=== PATIENT | male | born 1940 | race Caucasian/White ===

== ENCOUNTER 2017-11-21 15:30 | Observation (INO) | payer MEDICARE, OTHER ==
[~2017-11-21 15:30] MED LIST: ISOVUE-370 76%-LOCM 1 ML ONE
--- NOTE | 2017-11-21 17:27 | RAD ---
PORTABLE CHEST ONE VIEW: 11/21/17 at 4:23 p.m. HISTORY: Syncope. FINDINGS: Comparison is made with exam of 07/17/12. The heart is enlarged. Left sided AICD remains in place. The aorta is tortuous. No lobar consolidatio n, pneumothoraces, or pleural effusion was seen. There is no evidence of ava pulmonary edema. Posto p changes in both clavicles and shoulder regions are redemonstrated. IMPRESSION: No acute process. POS: [facility]
--- NOTE | 2017-11-21 17:41 | RAD ---
AP PELVIS: 11/21/17 HISTORY: Fall. Back pain. FINDINGS/IMPRESSION: Degenerative changes are seen most prominent in the lower lumbar spine. No acute fracture or dislocat ions are identified. POS: [facility]
--- NOTE | 2017-11-21 17:43 | RAD ---
RIGHT KNEE FOUR VIEWS 11/21/17 HISTORY: Fall, right knee pain. FINDINGS: Degenerative changes are present. No acute fracture or dislocation is identified. Soft tissue calcifi cations are again seen as on 07/07/17. POS: [facility]
--- NOTE | 2017-11-21 17:44 | RAD ---
LEFT KNEE FOUR VIEWS: 11/21/17 HISTORY: Fall. Left knee pain. FINDINGS/IMPRESSION: Degenerative changes are present. No acute fracture or dislocation identified. POS: [facility]
[2017-11-21 17:48] LABS: #Eosinphils 0.1 thou/uL (0.0-0.7); #Lymphocytes 1.2 thou/uL (1.20-3.40); #Monocytes 0.4 thou/uL (0.11-0.59); #Neutrophils 3.8 thou/uL (1.40-6.50); %Eosinophils 2.1 % (0.0-10.0); %Lymphocytes 21.3 % (21.0-51.0); %Neutrophils 68.6 % (42.0-75.0); Hemoglobin 13.4 g/dL (14.0-18.0); Mean Corpuscular HGB CONC 33.1 g/dL (32.0-36.0); Mean Corpuscular Hemoglobin 32.3 pg (27.0-31.0); Mean Corpuscular Volume 97.7 fl (80.0-94.0); Mean Platelet Volume 7.7 fL (7.4-10.4); Platelet Count 130 thou/uL (130-400); RBC Distribution Width 13.5 % (11.5-14.5); Red Blood Cell (RBC) Count 4.14 mill/uL (4.70-6.10); White Blood Cell (WBC) Count 5.6 thou/uL (4.8-10.8)
--- NOTE | 2017-11-21 18:09 | RAD ---
THREE VIEWS OF THE LEFT SHOULDER 11/21/17 COMPARISON: None. HISTORY: Pain. FINDINGS: There is postoperative hardware associated with the superior and lateral aspect of the scapula/acromi on. There are prominent degenerative changes involving the left AC joint with joint space narrowing a nd osteophyte formation. There is no widening of the coracoclavicular interspace. There is elevation of the humeral head on the left which may signify underlying rotator cuff tear. No acute fracture or evidence of dislocation. IMPRESSION: Chronic findings as detailed above. No acute fracture is seen. POS: [facility]
[2017-11-21 18:16] LABS: ALT (SGPT) 15 U/L (8-55); AST (SGOT) 29 U/L (5-34); Albumin 3.9 g/dL (3.4-4.8); Alkaline Phosphatase 102 U/L (40-150); Anion Gap 13 mmol/L (10-20); BUN (Urea Nitrogen) 21 mg/dL (8.4-25.7); CK (CPK) 114 U/L (30-200); Calc. Creatinine Clearance 0 mL/min (70-130); Calcium 9.1 mg/dL (7.8-10.44); Carbon Dioxide 27 mmol/L (23-31); Chloride 100 mmol/L (98-107); Estimated GFR-MDRD 87; Glucose 100 mg/dL (83-110); Lipase 9 U/L (8-78); Potassium 4.2 mmol/L (3.5-5.1); Protein, Total 6.9 g/dL (5.8-8.1); Sodium 136 mmol/L (136-145)
[2017-11-21 18:18] LABS: Troponin I 0.102 ng/mL (< 0.028)
--- NOTE | 2017-11-21 18:58 | CT ---
HEAD CT WITHOUT CONTRAST 11/21/17 COMPARISON: 08/09/14. HISTORY: Fall. Syncope. Trauma. TECHNIQUE: Serial axial CT imaging obtained at 5 mm intervals from the vertex through the skull base without con trast. FINDINGS: There is evidence of prior right frontotemporal craniotomy, stable. There is an aneurysm clip in the right supraclinoid region/midline supraclinoid region, stable. There is encephalomalacia involving th e temporal lobe on the right. There is a focal area of dural calcification in the right frontal regio n, stable. There is no intracranial hemorrhage, midline shift, or mass effect. There is a focal area of encephalomalacia in the frontal lobe near the vertex on the right suggesting an area of prior righ t frontal lobe insult. There is near complete opacification of the sphenoid sinus on the right with s phenoid sinus expansion, progressed since the prior exam. There is partial opacification of the sphen oid sinus on the left, also progressed since the prior exam. IMPRESSION: 1. Numerous chronic findings as detailed above, including areas of encephalomalacia within the r ight frontal and right temporal region. No displaced calvarial fracture or intracranial hemorrhage is seen. 2. Near complete opacification of the sphenoid sinuses, right greater than left, with expansion of the right sphenoid, progressed since the prior exam. This may represent chronic sinusitis. In orde r to exclude an underlying neoplastic process, a followup CT examination of the paranasal sinuses wit h and without contrast on a nonemergent basis is advised. Code T POS: [facility]
[2017-11-21 19:00] LABS: Bilirubin Negative (Negative); Blood, Urine Negative (Negative); Clarity CLEAR (Clear); Glucose, Urine (Dipstick) Negative (Negative); Leukocyte Negative (Negative); Nitrite Negative (Negative); Protein, Urine (Dipstick) Negative (Neg-Trace); Specific Gravity, Urine 1.014 (1.002-1.036); pH, Urine 6.5 (5.0-9.0)
--- NOTE | 2017-11-21 22:39 | CT ---
CT ANGIO OF CHEST PERFORMED WITH INTRAVENOUS CONTRAST ENHANCEMENT WITH 3D RECONSTRUCTIONS: 11/21/17 HISTORY: Shortness of breath. The lungs are clear of infiltrative process. There is a moderately large right pleural effusion ident ified. Old appearing right rib fractures are seen. The bones are very demineralized. Thoracic aorta is normal in caliber. There is a small pericardial effusion present and a small hiatal hernia. There is good pulmonary artery opacification. There is no CT evidence for pulmonary embolus. IMPRESSION: 1. Moderate right pleural effusion. 2. No CT evidence for pulmonary embolus. POS: [facility]
[2017-11-22] MEDS ORDERED: Ondansetron ODT 4 MG TAB PO PRN (08:08)
[2017-11-22] MEDS ORDERED: Acetaminophen 325 MG TAB PO PRN (08:08)
[2017-11-22 09:09] LABS: INR-International Normal Ratio 2.2; Prothrombin Time 25.1 SEC (12.0-14.7)
--- NOTE | 2017-11-22 11:07 | HP ---
PRIMARY CARE PROVIDER: Dr. Jt Elizabeth. Referred to the [facility] by [facility]. HISTORY OF PRESENT ILLNESS: The patient came to the ER yesterday after having fallen at home. He lopez d no dizziness, no fainting. 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 He states he subluxe d his left shoulder, but he pushed back again. He presented to the emergency room. 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 He has a pacer d efibrillator for 3 years. He has hypertension, elevated cholesterol, hypothyroidism, chronic anticoa gulation due to cerebral aneurysm. PAST SURGICAL HISTORY: Include craniotomy for a cerebral aneurysm in 2004. He has had surgery on shoulders with metal implants. He has had bilateral hand surgery. He has had a stapedectomy bila teral. He has had lumbar spine surgery, and 3 surgeries on his elbows as a teenager. CURRENT MEDICATIONS: Coreg 12.5 mg twice a day, Alphagan drops, Lasix 40 mg 2 times a day, lisinopri l 2.5 mg a day, Zocor 80 mg a day, Synthroid 137 mcg a day, tramadol 50 mg 2 tabs once a day at bedti sd, Travatan eyedrops, Coumadin 5 mg a day except Monday, he takes 7.5 mg, Lyrica 150 mg once a day, and VESIcare 5 mg once a day. ALLERGIES: OFLOXACIN, ATENOLOL, METHOCARBAMOL, NITROGLYCERIN, PROMAZINE, ROBAXIN, SPARINE, and TROVA FLOXACIN. FAMILY HISTORY: Father at 52 of an DE. Mother is at 84, she had hypertension. SOCIAL HISTORY: , FULL CODE. next to kin, surrogate decision maker. No tobacco, no alc ohol. REVIEW OF SYSTEMS: GENERAL: No dizziness, fainting, fever, or chills. EYES: No double vision, blurred vision, flashing lights. EAR, NOSE, AND THROAT: No ear pain or drainage. No nasal bleeding. No trouble swallowing. CARDIAC: No chest pain, orthopnea or paroxysmal nocturnal dyspnea. RESPIRATIONS: No cough, wheezing, or asthma. GASTROINTESTINAL: No nausea, vomiting, diarrhea, abdominal pain. GENITOURINARY: Slow stream, nocturia. MUSCULOSKELETAL: Chronic aches and pains, chronic back pain. NEUROLOGIC: History of craniotomy for cerebral aneurysm, no focal deficits. PSYCHIATRIC: No anxiety, depression. SKIN: No bruising, bleeding, or rash. Usually he does have a couple of bruises and minor skin tears on both arms. HEME/LYMPH: No tender or swollen lymph nodes in axilla, inguinal or cervical area. PHYSICAL EXAMINATION: GENERAL: Alert, oriented, cooperative, pleasant. VITAL SIGNS: Blood pressure 106/65, pulse 82, respirations 14, temperature 98.3, O2 sat 98 on room a ir. HEAD, EYES, EARS, NOSE, AND THROAT: Reveals pupils equal, round, and reactive to light. Extraocular movements intact. Bilateral arcus, sclerae white. Tympanic membranes clear. Nose is clear. Mouth , mucous membranes clear, multiple missing teeth. NECK: No jugular venous distention, adenopathy, or thyromegaly. CHEST: Clear to auscultation and percussion. HEART: Regular rate and rhythm. First and second heart sounds normal. No murmurs, no gallops. ABDOMEN: Soft, bowel sounds are normal. There is no hepatosplenomegaly, no mass, no rebound. EXTREMITIES: Reveal no cyanosis, clubbing, or edema. PULSES: Carotid, radial, femoral, and dorsalis pedis pulses symmetric. SKIN: Warm and dry with some minor bruising on his forearms. HEME/LYMPH: No tender or swollen lymph nodes in axilla, inguinal, or cervical area. NEUROLOGICAL: Cranial nerves II-XII are intact. Deep tendon reflexes symmetric. Moves all extremit ies. IMAGING DATA: 1. EKG ventricular paced rhythm reviewed by me. 2. Chest x-ray: Cardiomegaly, defibrillator pacemaker left upper chest. Lung cartwright clear, evidenc e of mild blunting for very small pericardial effusions bilaterally, no evidence of failure. There a re metallic fixation devices in both shoulders, this reviewed by me. CT of the chest revealed eviden ce of pleural effusion, no pulmonary emboli. Pelvis and knee x-rays were done in the emergency room, they revealed only degenerative changes with no evidence of fracture. LABORATORY DATA: Comp metabolic profile normal. Troponin 0.102, 0.120, 0.130. D-dimer 1.03. White count 5.6, hemoglobin 13.4, and platelet count 130,000. ADMITTING DIAGNOSES: 1. Abnormal troponins. 2. History of coronary artery ectasia. 3. Cardiomegaly. 4. Pacemaker defibrillator. 5. Fall. 6. Hypertension. 7. Dyslipidemia. 8. Hypothyroidism. PLAN: Obs admission, selected home medicines. Cardiology consult has been placed.
[2017-11-22 13:16] VITALS: BMI 25.9
[2017-11-22] MEDS ORDERED: REFRESH PLUS (Carboxymethylcellulose 0.5%) Opth Drops EA EYE PRN (14:30)
[2017-11-22] MEDS ORDERED: Warfarin Sodium 5 MG TAB PO SCH (17:00)
--- NOTE | 2017-11-22 19:43 | CON ---
DATE OF CONSULTATION: 11/22/2017 HISTORY OF PRESENT ILLNESS: Vincent Butt is a pleasant 77-year-old white male, who was then followed by Dr. Mahoney since 08/2011. Prior to that, he was diagnosed as having "coronary artery ectasia in 1995" and was placed on Coumadin. He started to have problems with atrial fibrillation around 2009. He had left ventricular dysfunction and was placed on carvedilol. Ultimately, he has had a biventricular ICD placed and also apparently has had AV node ablation. He denies any recent shortness of breath. He does have problems with musculoskeletal chest wall pain at times. He had a fall yesterday when he was trying to move something with his foot. He remembers falling, remembers hitting the ground and does not sound as if he had any type of syncopal problem. PAST MEDICAL HISTORY: Coronary artery ectasia as noted above. Hypertension, hypercholesterolemia, hypothyroidism, chronic Coumadin therapy due to chronic atrial fibrillation as well as coronary artery ectasia. OPERATIONS: Include biventricular ICD placement, bilateral shoulder replacements, bilateral hand surgery, stapedectomy bilaterally, lumbar laminectomy, 3 surgeries on his elbow and craniotomy for cerebral aneurysm in 2004. MEDICATIONS: Carvedilol 12.5 mg b.i.d., docusate 200 mg at bedtime, Dentagel bedtime, furosemide 40 b.i.d., levothyroxine 137 mcg daily, lisinopril 1.25 mg b.i.d., multivitamin daily, Lyrica 75 b.i.d., simvastatin 80 at bedtime, spironolactone 25 daily, Travatan Z, warfarin 5 mg daily. ALLERGIES: ATENOLOL, ROBAXIN, NITROGLYCERIN, PROMETHAZINE, TROVAN. SOCIAL HISTORY: He does not smoke or drink. FAMILY HISTORY: Father had myocardial infarction. REVIEW OF SYSTEMS: Twelve point review of systems otherwise unremarkable. PHYSICAL EXAMINATION: VITAL SIGNS: Blood pressure 127/76, pulse of 81. HEENT: PERRL. NECK: Supple. CHEST: Clear. CARDIAC: S1 and S2 are normal, without any S3, S4 or murmurs. ABDOMEN: Normal bowel sounds, without tenderness or organomegaly. EXTREMITIES: Revealed no clubbing, cyanosis or edema. NEUROLOGIC: Grossly intact. SKIN: Warm and dry. LABORATORY DATA: EKG revealed ventricular pacing. Hemoglobin 13.4, hematocrit 40.5, white count 5600, platelets 130,000. INR 2.2. Sodium 136, potassium 4.2 , chloride 100, carbon dioxide 27, BUN 21, creatinine 0.85. Troponin I is 0.130. BNP 776.6. CK-MB is normal. IMPRESSION: 1. Fall at home without syncope. 2. Demand ischemia. 3. History of coronary artery ectasia on chronic Coumadin, as well as on Coumadin for chronic atrial fibrillation. 4. Chronic atrial fibrillation. 5. History of AV node ablation. 6. Biventricular ICD, which is functioning normally; however, apparently is at elective replacement indicator at this time. Also, on interrogation of the ICD , the Optivol was elevated in mid October, but is back to baseline at the present time. 7. Hypertension. 8. Hypercholesterolemia. PLAN: Dr. Hayes has been notified that his ICD is an elective replacement indicator. Here his INR is 2.2 and potentially the ICD replacement could be arranged as an outpatient. It does not sound as if he had any true syncopal episode with this fall. The patient will be followed by Dr. Mahoney in the morning. ANJU
[2017-11-22] MEDS: traMADol HCl 50 MG TAB PO SCH (20:19)
[2017-11-22] MEDS: Carvedilol 6.25 MG TAB PO SCH (20:19)
[2017-11-22] MEDS: Furosemide 40 MG TAB PO SCH (20:19)
[2017-11-22] MEDS: Lisinopril 2.5 MG TAB PO SCH (20:22)
[2017-11-22] MEDS: Brimonidine Tartrate 0.2% Ophth Soln 5 ml Bottle EA EYE SCH (20:27)
[2017-11-22] MEDS ORDERED: Latanoprost 0.005% Ophth Soln 2.5 ml Bottle EA EYE SCH (21:00)
[2017-11-22] MEDS ORDERED: Atorvastatin Calcium 40 MG TAB PO SCH (21:00)
[2017-11-23] MEDS ORDERED: Levothyroxine Sodium 25 MCG TAB PO SCH (06:00)
[2017-11-23] MEDS ORDERED: Levothyroxine Sodium 112 MCG TAB PO SCH (06:00)
--- NOTE | 2017-11-23 06:12 | CON ---
DATE OF SERVICE: 11/22/2017 ELECTROPHYSIOLOGY CONSULTATION REPORT REFERRING PHYSICIAN: Dr. Thurston and Dr. Crow. I am seeing Mr. Butt at our [facility] telemetry floor as an electrophysiology desktop support consultant for the david problems: 1. ICD generator passed elective replacement indicator. 2. Chronic history of systolic congestive heart failure with severely-reduced left ventricular systo lic function, LVEF currently 30-35% on echo 09/19/2016. A. Status post bi-V ICD in place with a [employer] FLIGHT INFORMATION EXPEDITER device at 2.62 volts likely no a trial lead, but dual RV and LV leads are present with adequate function. 3. History of coronary artery disease. 4. History of cerebral aneurysm. 5. History of chronic anticoagulation. 6. History of hypertension. 7. History of elevated cholesterol. 8. History of hypothyroidism. ALLERGIES: OFLOXACIN, ATENOLOL, METHOCARBAMOL, NITROGLYCERIN, PROMETHAZINE, ROBAXIN, SPARINE, AND TR OVAFLOXACIN. MEDICATIONS: At home include Coreg, Alphagan, Lasix, lisinopril, Zocor, Synthroid, tramadol, Travata n, Coumadin, Lyrica, VESIcare. SUBJECTIVE: Mr. Butt is here due to a slip and fall. He denies passing out spells. He subluxed hi s left shoulder but eventually went back again. He was evaluated in the ER, found to have no fractur es. On the other hand, his ICD also was found to have with the findings above at elective replacemen t indicator. Currently, he is feeling well. No PND, orthopnea, or lower extremity edema. No fever, chills, or cough. No stroke-like symptoms. REVIEW OF SYSTEMS: Rest of the twelve-point system otherwise unremarkable. PAST MEDICAL HISTORY: As above. SOCIAL HISTORY: The patient has no smoking, ETOH, or drug use. FAMILY HISTORY: Significant for father dying of an NV at age 52. OBJECTIVE DATA: VITAL SIGNS: Blood pressure is 116/70, heart rate 81, respirations 16, temperature 98.8 degrees Fahr enheit. GENERAL: Alert and oriented man in no apparent distress. NECK: Supple. Jugular veins are not distended. CHEST: Coarse without crackles. CARDIOVASCULAR: Heart sounds are regular to rate and rhythm. No murmur or gallop. ABDOMEN: Benign. Bowel sounds positive. EXTREMITIES: Lower extremities without edema, clubbing, or cyanosis. Pulses are adequate. NEUROLOGIC: The patient is nonfocal. MUSCULOSKELETAL: No joint swelling or deformities . Left precordial ICD insertion site is heal ed well. DATABASE: ICD interrogated in detail as above. LABORATORY DATA: White blood cell count 5.6, hemoglobin 13.4, platelet count is 130. INR is 2.2. S odium 136, potassium 4.2, BUN is 21, creatinine 0.85. Troponin 0.10-0.13. BNP is 776. Chest CT was negative for pulmonary embolism. ASSESSMENT AND PLAN: Mr. Butt is a pleasant 77-year-old man with history of congestive heart failur e, ischemic cardiomyopathy still [id number] reduced left ventricular ejection fraction with biventricular ICD in place. Also, the interrogation seems to indicate high-grade ventricular pacing dependency. I discussed the necessity of ICD generator change. He understands the risk of infection, but overall , I am expecting a relatively straightforward procedure. Discussed the issue of anticoagulation, we would likely need to hold Coumadin, but I am not expecting major bleeding with the therapeutic level if we perform the operation in therapeutic levels. That way we can avoid bridging which often more bleeding than the Coumadin itself. We will schedule him for this procedure tomorrow. Thank you again for allowing me to participate in the care of this patient.
[2017-11-23] MEDS ORDERED: CEFAZOLIN 1 GM VIAL ONE (07:59)
[2017-11-23] MEDS ORDERED: CEFAZOLIN/Water 2 GM/20 ML SYRINGE ONE (08:00)
[2017-11-23] MEDS ORDERED: Fentanyl 100 MCG/2 ML VIAL ONE (08:11)
[2017-11-23] MEDS ORDERED: Spironolactone 25 MG TAB PO SCH (09:00)
[2017-11-23] MEDS ORDERED: Acetaminophen/Codeine 30-300mg Tablet PO PRN ×2 (09:16)
[2017-11-23] MEDS ORDERED: REFRESH PLUS (Carboxymethylcellulose 0.5%) Opth Drops EA EYE PRN (09:18)
[2017-11-23] MEDS ORDERED: Temazepam 15 MG CAP PO PRN (09:30)
[2017-11-23] MEDS ORDERED: Bisacodyl 5 MG TAB PO PRN (09:30)
[2017-11-23] MEDS ORDERED: Silver Sulfadiazine 1% Cream 50 GM JAR TOP PRN (09:30)
[2017-11-23] MEDS ORDERED: diphenhydrAMINE 25 MG CAP PO PRN (09:30)
[2017-11-23] MEDS ORDERED: Mag-Al 1200 mg/1200 mg/30 ML UDCUP PO PRN (09:30)
[2017-11-23] MEDS ORDERED: Nitroglycerin 0.4 MG TAB (25 Tab Bottle) SL PRN (09:30)
[2017-11-23] MEDS ORDERED: Bisacodyl 10 MG SUPP PR PRN (09:30)
[2017-11-23] MEDS ORDERED: Ondansetron HCl/PF 4 MG/2 ML Vial IVP PRN (09:30)
[2017-11-23] MEDS ORDERED: Acetaminophen 325 MG TAB PO PRN (09:30)
[2017-11-23] MEDS ORDERED: traMADol HCl 50 MG TAB PO PRN (09:30)
--- NOTE | 2017-11-23 10:37 | PDOC.PN ---
- Subjective Encounter Start Date: 11/23/17 Encounter Start Time: 10:35 Subjective: nsg notes rev, ervin ovn, @ bedside, pt seen s/p ICD replacement -: pt no new c/o, no pain, no L arm weakness/ numbness/ tingling, no SOB -: no CP - Objective Resuscitation Status: Resuscitation Status FULL:Full Resuscitation Vital Signs & Weight: Vital Signs (12 hours) Temp Pulse Resp BP Pulse Ox 11/23/17 07:38 98.3 F 80 16 11/23/17 03:45 98.3 F 80 16 98/56 L 94 L 11/22/17 23:10 98.0 F 81 16 95/56 L 93 L Weight Weight 160 lb 8 oz I&O: 11/22/17 11/23/17 11/24/17 06:59 06:59 06:59 Intake Total 320 Output Total 550 Balance -230 Result Diagrams: 11/23/17 14:00 11/21/17 17:44 Phys Exam - Physical Examination Constitutional: NAD HEENT: PERRLA, moist MMs, sclera anicteric Respiratory: no wheezing, no rales, no rhonchi, clear to auscultation bilateral limited anterior examination Cardiovascular: RRR, no significant murmur, no rub surgical dressing site not removed - no seepage through bandaging Gastrointestinal: soft, non-tender, no distention, positive bowel sounds Musculoskeletal: no edema, pulses present Neurological: moves all 4 limbs Psychiatric: normal affect, A&O x 3 Dx/Plan - Plan * s/p ICD replacement * plan for D/C when stable post-operatively Review of Systems - Review of Systems Constitutional: chills - Medications/Allergies Allergies/Adverse Reactions: Allergies Allergy/AdvReac Type Severity Reaction Status Date / Time alatrofloxacin mesylate Allergy Verified 05/28/14 13:35 [From Trovan] atenolol Allergy Verified 05/28/14 13:35 methocarbamol [From Robaxin] Allergy Verified 05/28/14 13:35 nitroglycerin Allergy Verified 05/28/14 13:35 promazine HCl [From Sparine] Allergy Verified 05/28/14 13:35 trovafloxacin mesylate Allergy Verified 05/28/14 13:35 [From Trovan] Medications: Current Medications Acetaminophen (Tylenol) 650 mg PO Q4H PRN PRN Reason: Mild Pain 1-3 Acetaminophen/Codeine Phosphate (Tylenol #3) 1 tab PO Q4H PRN PRN Reason: Mild Pain (1-3) Acetaminophen/Codeine Phosphate (Tylenol #3) 2 tab PO Q4H PRN PRN Reason: Moderate Pain (4-6) Al Hydroxide/Mg Hydroxide (Maalox) 15 ml PO Q4H PRN PRN Reason: Heartburn or Indigestion Atorvastatin Calcium (Lipitor) 40 mg PO HS [facility]ZE Bisacodyl (Dulcolax) 5 mg PO DAILYPRN PRN PRN Reason: CONSTIAPT Bisacodyl (Dulcolax) 10 mg NM DAILYPRN PRN PRN Reason: Constipation Brimonidine Tartrate (Alphagan 0.2% Oph Soln) 1 drop EA EYE BID EZE Carboxymethylcellulose (Refresh Plus 0.5%) 0 each EA EYE PRN PRN PRN Reason: Dry Eyes Carboxymethylcellulose (Refresh Plus 0.5%) 0 each EA EYE PRN PRN PRN Reason: DRY EYE Carvedilol (Coreg) 12.5 mg PO BID [facility] Cephalexin (Keflex) 500 mg PO Q6HR [facility] Stop: 11/30/17 12:01 Diphenhydramine HCl (Benadryl) 25 mg PO Q6H PRN PRN Reason: Itching Furosemide (Lasix) 40 mg PO 0900,1400 [facility] Latanoprost (Xalatan 0.005% Oph Soln) 1 drop EA EYE HS [facility] Levothyroxine Sodium (Synthroid) 25 mcg PO 0600 [facility] Levothyroxine Sodium (Synthroid) 112 mcg PO 0600 [facility] Lisinopril (Zestril) 1.25 mg PO BID [facility] Nitroglycerin (Nitrostat) 0.4 mg SL Q5MIN PRN PRN Reason: Chest Pain Ondansetron HCl (Zofran Odt) 4 mg PO Q6H PRN PRN Reason: Nausea/Vomiting Ondansetron HCl (Zofran) 4 mg IVP Q6H PRN PRN Reason: Nausea/Vomiting Silver Sulfadiazine (Silvadene) 0 gm TOP Q12H PRN PRN Reason: Rash/Topical Irritation Spironolactone (Aldactone) 25 mg PO QAM-WM [facility] Temazepam (Restoril) 15 mg PO HSPRN PRN PRN Reason: Insomnia Tramadol HCl (Ultram) 100 mg PO BID [facility] Tramadol HCl (Ultram) 50 mg PO Q4H PRN PRN Reason: FOR MODERATE PAIN 4-6 Warfarin Sodium (Coumadin) 5 mg PO 1700 [facility]
[2017-11-23] MEDS ORDERED: Cephalexin 250 MG CAP PO SCH (12:00)
[2017-11-23] MEDS: Brimonidine Tartrate 0.2% Ophth Soln 5 ml Bottle EA EYE SCH (12:54)
[2017-11-23] MEDS: traMADol HCl 50 MG TAB PO SCH (12:55)
[2017-11-23] MEDS: Lisinopril 2.5 MG TAB PO SCH (12:55)
[2017-11-23] MEDS: Carvedilol 6.25 MG TAB PO SCH (12:55)
[2017-11-23] MEDS: Furosemide 40 MG TAB PO SCH (12:55)
--- NOTE | 2017-11-23 13:57 | PRG ---
DATE OF SERVICE: 11/23/2017 SUBJECTIVE: Mr. Butt is doing well today. He underwent generator change today. Incision is clean and dry. OBJECTIVE: VITAL SIGNS: Blood pressure is 107/62, pulse is 80. LUNGS: Clear. CARDIAC: Normal S1, normal S2. ASSESSMENT: Status post AICD change. PLAN: He will go home on his current medical regimen.
[2017-11-23] MEDS ORDERED: Furosemide 40 MG TAB PO SCH (14:00)
[2017-11-23 14:27] LABS: Hemoglobin 13.3 g/dL (14.0-18.0); Platelet Count 140 thou/uL (130-400)
[2017-11-23 15:46] VITALS: BP 108/62; TEMP 98.4
[2017-11-23] MEDS ORDERED: Warfarin Sodium 5 MG TAB PO SCH (17:00)
[2017-11-23] MEDS ORDERED: Carvedilol 6.25 MG TAB PO SCH (21:00)
[2017-11-23] MEDS ORDERED: Brimonidine Tartrate 0.2% Ophth Soln 5 ml Bottle EA EYE SCH (21:00)
[2017-11-23] MEDS ORDERED: Atorvastatin Calcium 40 MG TAB PO SCH (21:00)
[2017-11-23] MEDS ORDERED: Latanoprost 0.005% Ophth Soln 2.5 ml Bottle EA EYE SCH (21:00)
[2017-11-23] MEDS ORDERED: Lisinopril 2.5 MG TAB PO SCH (21:00)
[2017-11-23] MEDS ORDERED: traMADol HCl 50 MG TAB PO SCH (21:00)
[2017-11-24] MEDS ORDERED: Levothyroxine Sodium 25 MCG TAB PO SCH (06:00)
[2017-11-24] MEDS ORDERED: Levothyroxine Sodium 112 MCG TAB PO SCH (06:00)
--- NOTE | 2017-11-24 06:58 | DIS ---
DISCHARGE DIAGNOSES: 1. Status post ICD exchange. 2. Status post fall at home, suspected mechanical. BRIEF SUMMARY OF HOSPITAL COURSE: This is a 77-year-old male with a known history of coronary artery ectasia, chronic atrial fibrillation on Coumadin, history of biventricular ICD and prior AV devin ablation. He initially presented with status post-fall. Please see the original history and physical for full details surrounding his admission. During admission, with the patient's cardiac history, there was concern for the possibility of cardiac etiology driving his home falls. The patient was seen by Cardiology in consultation at this time of discharge and was felt to not be cardiogenic in origin, and likely mechanical. On discharge, the patient will continue on his home medication regimen. Also during this hospitalization, the patient's biventricular ICDs was replaced as per his indicator. He has tolerated this procedure well. He is being discharged postoperatively. The remainder of the patient's chronic medical issues was stable during hospitalization. Medication reconciliation, please see the EMR for full detail. Briefly, patient will continue on his home regimen The patient and his at bedside able to complete teach back. Thank you for asking me care for your patient. Questions or concerns, contact me at [facility]
[2017-11-24] MEDS ORDERED: Spironolactone 25 MG TAB PO SCH (08:00)
--- NOTE | 2017-11-25 12:08 | EKG ---
Test Reason : FALL Blood Pressure : / mmHG Vent. Rate : 080 BPM Atrial Rate : 084 BPM P-R Int : 000 ms QRS Dur : 160 ms QT Int : 478 ms P-R-T Axes : 000 014 034 degrees QTc Int : 551 ms Electronic ventricular pacemaker Confirmed by ALONZO AGUILLON, BETTIE ([id number]), editorial manager BRITNEY PAGE ([id number]) on 11/25/2017 12:08:13 PM Referred By: DR LOPES Confirmed By:BETTIE ROSADO MD
== END 2017-11-23 17:32 | disposition home or self-care (01) ==
LOC: ERS 15:30 → ERHOLD 23:38 → INTOOBSV 23:38 → 2SW 11-22 12:51
PROVIDERS: ADMIT Family Medicine; ATTEND Family Medicine
DX: R79.89 Other specified abnormal findings of blood chemistry (principal); I25.10 Atherosclerotic heart disease of native coronary artery without angina pectoris; I48.2 Chronic atrial fibrillation; I11.0 Hypertensive heart disease with heart failure; I50.22 Chronic systolic (congestive) heart failure; I67.1 Cerebral aneurysm, nonruptured; E78.00 Pure hypercholesterolemia, unspecified; E03.9 Hypothyroidism, unspecified; I24.8 Other forms of acute ischemic heart disease; K21.9 Gastro-esophageal reflux disease without esophagitis; Q78.0 Osteogenesis imperfecta; Z45.2 Encounter for adjustment and management of vascular access device; Z91.81 History of falling; Z79.01 Long term (current) use of anticoagulants; Z79.2 Long term (current) use of antibiotics; Z79.891 Long term (current) use of opiate analgesic; Z79.899 Other long term (current) drug therapy; Z88.1 Allergy status to other antibiotic agents; Z88.8 Allergy status to other drugs, medicaments and biological substances; Z95.810 Presence of automatic (implantable) cardiac defibrillator; Z96.612 Presence of left artificial shoulder joint; Z96.611 Presence of right artificial shoulder joint; Z98.52 Vasectomy status; Z98.890 Other specified postprocedural states; W01.0XXA Fall on same level from slipping, tripping and stumbling without subsequent striking against object, initial encounter
CPT/HCPCS: 33264; 70450; 71045; 71275; 72170; 73030; 73564 ×2; 80053; 81003; 82550; 82553; 83690; 83880; 84484 ×3; 85014; 85018; 85025; 85049; 85379; 85610; 87804 ×2; 93005; 93798; 94760; 99285; C1882; 36415; J0690; J3010; J3490

== ENCOUNTER 2018-01-23 18:07 | Emergency (ER) | payer MEDICARE, OTHER ==
[~2018-01-23 18:07] MED LIST changes: +Calcium Chloride 1 GM/10 ML Abboject SYRINGE ONE; +Dextrose 50% Abboject 50 ML SYRINGE ONE; +EPINEPHrine 1 MG/10 ML Abboject SYRINGE ONE; -ISOVUE-370 76%-LOCM 1 ML ONE; +Sodium Bicarb 50 MEQ/50 ML Abboject 8.4% SYRINGE ONE
== END 2018-01-23 18:14 | disposition expired ==
LOC: ERS 18:07
DX: I46.9 Cardiac arrest, cause unspecified (principal); I50.9 Heart failure, unspecified
CPT/HCPCS: 92950; 96374; 96375; J0171